=== PATIENT | female | born 1985 | race Hispanic/Latino ===

== ENCOUNTER 2017-03-23 19:43 | Emergency (ER) | payer BC, MEDICAID ==
[2017-03-23] MEDS ORDERED: GUAIFENESIN-DM 200/20 MG 10 ML ONE (20:07)
[2017-03-23] MEDS ORDERED: DIPHENHYDRAMINE HCL 25 MG CAPSULE ONE (20:07)
== END 2017-03-23 20:52 | disposition home or self-care (01) ==
LOC: EDH 19:43
DX: O99.513 Diseases of the respiratory system complicating pregnancy, third trimester (principal); J06.9 Acute upper respiratory infection, unspecified; Z3A.39 39 weeks gestation of pregnancy; Z90.49 Acquired absence of other specified parts of digestive tract; Z98.890 Other specified postprocedural states
CPT/HCPCS: 87804 ×2; 99284; Q0163